=== PATIENT | female | born 1970 | race Caucasian/White ===

== ENCOUNTER 2019-01-21 22:52 | Inpatient (IN) | payer OTHER ==
[~2019-01-21] VITALS: Ht 160 cm; Wt 80.3 kg
[2019-01-21] MEDS ORDERED: ONDANSETRON HCL INJ 2MG/ML 2ML 2 MG/ML VIAL IV STA (23:00)
[2019-01-21] MEDS ORDERED: KETOROLAC TROMETHAMINE 30 MG/ML VIAL IV STA (23:00)
[2019-01-21 23:14] LABS: BASOPHILS % 0.3 % (0.0-1.0); EOSINOPHILS # (AUTO) 0.2 (0.0-0.4); EOSINOPHILS % 3.7 % (0.0-6.0); HEMATOCRIT 35.7 % (34.2-44.1); HEMOGLOBIN 12.1 g/dL (12.0-16.0); LYMPHOCYTES % 31.1 % (18.0-39.1); MEAN CORPUSCULAR HEMOGLOBIN 28.8 pg (28-32); MEAN CORPUSCULAR HGB CONC 33.9 g/dL (31-35); MONOCYTES # (AUTO) 0.5 (0.2-0.8); MONOCYTES % 7.5 % (4.4-11.3); NEUTROPHILS # (AUTO) 3.8 (2.1-6.9); NEUTROPHILS % 57.2 % (38.7-80.0); PLATELET COUNT 163 x10e3/uL (140-360); RED CELL DISTRIBUTION WIDTH 12.7 % (11.7-14.4)
[2019-01-21] MEDS: SODIUM CHLORIDE 0.9% 1000ML 1,000 ML IV SCH (23:18)
[2019-01-21 23:35] LABS: ANION GAP 15.8 mmol/L (8-16); BLOOD UREA NITROGEN 17 mg/dL (7-26); BUN/CREATININE RATIO 19 (6-25); CALCIUM 9.8 mg/dL (8.4-10.2); CARBON DIOXIDE 22 mmol/L (22-29); CHLORIDE 105 mmol/L (98-107); CREATININE, SERUM 0.91 mg/dL (0.57-1.11); EST GLOMERULAR FILTRATION RATE > 60 ML/MIN (60-); GLUCOSE 134 mg/dL (74-118); POTASSIUM 3.8 mmol/L (3.5-5.1); SODIUM 139 mmol/L (136-145)
[2019-01-21] MEDS ORDERED: MORPHINE SULFATE INJ 4 MG/ML INJ 1ML IV STA (23:55)
[2019-01-21 23:58] LABS: BILIRUBIN,URINE NEGATIVE (NEGATIVE); CLARITY,URINE CLEAR (CLEAR); COLOR,URINE YELLOW (YELLOW); KETONES,URINE NEGATIVE (NEGATIVE); LEUKOCYTE ESTERASE ,URINE NEGATIVE (NEGATIVE); NITRITE,URINE NEGATIVE (NEGATIVE); PROTEIN,URINE DIPSTICK NEGATIVE (NEGATIVE); URINE UROBILINOGEN 0.2 mg/dL (0.2 - 1)
[2019-01-22] VITALS (8 sets, daily range): BP systolic 125–167; BP diastolic 60–86
[2019-01-22 00:04] LABS: PREGNANCY TEST, URINE NEGATIVE (NEGATIVE)
[2019-01-22 00:14] LABS: EPITHELIAL CELLS,URINE FEW /LPF; RBC,URINE 0-5 /HPF (0-5); WBC,URINE (MAN) 0-5 /HPF (0-5)
--- NOTE | 2019-01-22 00:49 | Diagnostic Imaging Report ---
EXAM: CT Abdomen and Pelvis WITHOUT contrast INDICATION: ^Flank Pain ^20190121 ^2330 COMPARISON: None. TECHNIQUE: Abdomen and pelvis were scanned utilizing a multidetector helical scanner from the lung base to the pubic symphysis without administration of IV contrast. Absence of intravenous contrast decreases sensitivity for detection of focal lesions and vascular pathology. Coronal and sagittal reformations were obtained. Routine protocol was performed. IV CONTRAST: None ORAL CONTRAST: None. COMPLICATIONS: None RADIATION DOSE: Total DLP: 544.98 mGy*cm Estimated effective dose: (DLP x 0.015 x size factor) mSv CTDIvol has been reviewed. It is below the limits set by the Radiation Protocol Committee (RPC). FINDINGS: LINES and TUBES: None. LOWER THORAX: Scattered small groundglass opacities, likely subsegmental atelectasis. HEPATOBILIARY: Hepatic steatosis. 2.4 cm caudate lobe hypodensity is probably a cyst. No biliary ductal dilation. GALLBLADDER: Contracted. No radio-opaque stones or sludge. No wall thickening. SPLEEN: No splenomegaly. PANCREAS: No focal masses or ductal dilatation. ADRENALS: No adrenal nodules KIDNEYS/URETERS: Moderate right perinephric inflammation and mild to moderate right hydronephrosis, caused by proximal right ureteral calculi, measuring up to 8 mm. Multiple right renal calculi, the largest is a staghorn calculus in the inferior pole, measuring approximately 1.9 cm as well as a 1.6 cm calculus in right renal pelvis. Cluster of left renal inferior pole nonobstructive calculi, measuring up to 6 mm. No left hydronephrosis. Limited for evaluation of renal parenchyma without intravenous contrast. GI TRACT: No abnormal distention, wall thickening, or evidence of bowel obstruction. Appendix is normal. PELVIC ORGANS/BLADDER: Unremarkable. LYMPH NODES: No lymphadenopathy. VESSELS: Unremarkable. PERITONEUM / RETROPERITONEUM: No free air or fluid. BONES: Unremarkable. SOFT TISSUES: Unremarkable. IMPRESSION: 1. Moderate right perinephric inflammation and mild to moderate hydronephrosis, caused by obstructive proximal right ureteral calculi, measuring up to 8mm. Multiple additional right renal calculi as above. Superimposed infection cannot be excluded. 2. Multiple left renal subcentimeter nonobstructive calculi. 3. Hepatic steatosis. Signed by: Dr. Moncho Perez MD on 01/22/2019 12:46 AM
--- OUTSIDE RECORDS SUMMARY | 2019-01-22 01:19 | XMS REPORT ---
Author [facility] Address Unknown Phone Unavailable Care Team Providers Care Approver Name Role Phone MARIANNE GAN Unavailable Unavailable HAMPEL, ROBERT Unavailable Unavailable Payers Payer Name Policy Type Policy Number Effective Date Expiration Date Problems This patient has no known problems. Allergies, Adverse Reactions, Alerts This patient has no known allergies or adverse reactions. Medications This patient has no known medications. Results Test Description Test Time Test Comments Text Results Atomic Results Result Comments CT ABDOMEN/PELVIS WO 2019-01-22 00:31:00 [place] [address] Patient Name: SINAI REYES MR #: [id number] : 1970 Age/Sex: 48/F Req #: [id number] Adm Physician: Ordered by: MARIANNE GAN DO Report #: [id number] Location: ER Room/Bed: Procedure: [id number] CT/CT ABDOMEN/PELVIS WO Exam Date: 01/21/19 Exam Time: 2329 REPORT STATUS: Signed EXAM: CT Abdomen and Pelvis WITHOUT contrast INDIC ATION: Flank Pain 20190121 COMPARISON: None. TECHNIQUE: Abdomen and pelvis were scanned utilizing a multidetector helical scanner from the lung base to the pubic symphysis without administration of IV contrast. Absence of intravenous contrast decreases sensitivity for detection of focal lesions and vascular pathology. Coronal and sagittal reformations were obtained. Routine protocol was performed. IV CONTRAST: None ORAL CONTRAST: None. COMPLICATIONS: None RADIATION DOSE: Total DLP: 544.98 mGy*cm Estimated effective dose: (DLP x 0.015 x size factor) mSv CTDIvol has been reviewed. It is below the limits set by the Radiation Protocol Committee (RPC). FINDINGS: LINES and TUBES: None. LOWER THORAX: Scattered small groundglass opacities, likely subsegmental atelectasis. HEPATOBILIARY: Hepatic steatosis. 2.4 cm caudate lobe hypodensity is probably a cyst. No biliary ductal dilation. GALLBLADDER: Contracted. No radio-opaque stones or sludge. No wall thickening. SPLEEN: No splenomegaly. PANCREAS: No focal masses or ductal dilatation. ADRENALS: No adrenal nodules KIDNEYS/URETERS: Moderate right perinephric inflammation and mild to moderate right hydronephrosis, caused by proximal right ureteral calculi, measuring up to 8 mm. Multiple right renal calculi, the largest is a staghorn calculus in the inferior pole, measuring approximately 1.9 cm as well as a 1.6 cm calculus in right renal pelvis. Cluster of left renal inferior pole nonobstructive calculi, measuring up to 6 mm. No left hydronephrosis. Limited for evaluation of renal parenchyma without intravenous contrast. GI TRACT: No abnormal distention, wall thicke lyn, or evidence of bowel obstruction. Appendix is normal. PELVIC ORGANS/BLADDER: Unremarkable. LYMPH NODES: No lymphadenopathy. VESSELS: Unremarkable. PERITONEUM / RETROPERITONEUM: No free air or fluid. BONES: Unremarkable. SOFT TISSUES: Unremarkable. IMPRESSION: 1. Moderate right perinephric inflammation and mild to moderate hydronephrosis, caused by obstructive proximal right ureteral calculi, measuring up to 8mm. Multiple additional right renal calculi as above. Superimposed infection cannot be excluded. 2. Multiple left renal siu bcentimeter nonobstructive calculi. 3. Hepatic steatosis. Signed by: Dr. Moncho Salcedo MD on 01/22/2019 12:46 AM Dictated By: MONCHO SALCEDO MD Transcribed By: ARAVIND on 01/22/1945 COPY TO: MARIANNE GAN DO ABDOMEN-1VIEW (KUB) [place] [address] Patient Name: SINAI CONNOLLY MR #: [id number] : 1970 Age/Sex: 46/F Req #: [id number] Adm Physician: Ordered by: ROBERT MARSHALL MD Report #: [id number] Location: OR Room/Bed: Procedure: [id number] DX/ABDOMEN-1VIEW (KUB) Exam Date: 09/15/17 Exam Time: 1015 REPORT STATUS: Signed PROCEDURE: X-RAY ABDOMEN - KUB COMPARISON: 08/11/2017. INDICATIONS: PREOPERATIVE XRAY FOR KIDNEY STONE SURGERY FINDINGS: Interval placement of a left internal ureteral stent. The proximal locking loop projects over the expected region of the upper pole collecting system. The distal locking loop projects over the expected region of the left side of the bladder. No suspicious calcifications project over the renal shadows, left ureteral stent, expected right ureteral course, or urinary bladder. Bowel gas pattern is nonobstructive. Regional skeletal structures are intact. CONCLUSION: Interval placement of a left internal ureteral stent, positioned as described. Otherwise unchanged radiographic appearance of the abdomen relative to 08/11/2017. Dictated by: Maggie Alejandro M.D. on 09/15/2017 at 11:13 Electronically approved by: Maggie Alejandro M.D. on 09/15/2017 at 11:13 Dictated By: MAGGIE ALEJANDRO MD 1113 Transcribed By: TYRONE on 09/15/171112 COPY TO: ROBERT MARSHALL MD ABDOMEN-1VIEW (KUB) [place] [address] Patient Name: SINAI CONNOLLY MR #: [id number] : 1970 Age/Sex: 46/F Req #: [id number] Adm Physician: Ordered by: ROBERT MARSHALL MD Report #: [id number] Location: OR Room/Bed: Procedure: [id number] DX/ABDOMEN-1VIEW (KUB) Exam Date: Exam Time: REPORT STATUS: Signed PROCEDURE: X-RAY ABDOMEN - KUB COMPARISON: CT abdomen and pelvis 08/05/2017. CT abdomen and pelvis 03/18/2016 INDICATIONS: PREOPERATIVE XRAY FOR KIDNEY STONE REMOVAL FINDINGS: There is a non-obstructed bowel-gas pattern. There are no calcifications projected over the renal shadows, expected course of the ureters or bladder. Phleboliths are present in the pelvis. There are no acute osseous abnormalities. The lung bases are clear. CONCLUSION: No acute radiographic abnormality. Dictated by: Susanna Vallejo M.D. on 08/11/2017 at 10:09 Electronically approved by: Susanna Vallejo M.D. on 08/11/2017 at 10:09 Dictated By: SUSANNA VALLEJO MD 1009 Transcribed By: TYRONE on 08/11/17 1009 COPY TO: ROBERT MARSHALL MD CT ABDOMEN/PELVIS WO [place] [address] Patient Name: SINAI CONNOLLY MR #: [id number] : 1970 Age/Sex: 46/F Req #: [id number] [facility] Physician: Ordered by: ROBERT MARSHALL MD Report #: [id number] Location: CT Room/Bed: Procedure: [id number] CT/CT ABDOMEN/PELVIS WO Exam Date: 08/05/17 Exam Time: 1030 REPORT STATUS: Signed PROCEDURE: CT ABDOMEN AND PELVIS WITHOUT CONTRAST TECHNIQUE: The abdomen and pelvis were scanned utilizing a multidetector helical scanner from the diaphragm to the lesser trochanter without contrast. No IV contrast was administered because per physician request). Coronal and sagittal multiplanar reformations were obtained. COMPARISON: [facility], CT, CT ABDOMEN/PELVIS WO, 03/18/2016, 11:22. INDICATIONS: R/O STONES FINDINGS: ABSENCE OF INTRAVENOUS CONTRAST DECREASES SENSITIVITY FOR DETECTION OF FOCAL LESIONS AND VASCULAR PATHOLOGY. LOWER THORAX: Mild bibasilar patchy ground glass density suggestive of subsegmental atelectasis. The HEPATOBILIARY: Severe hepatic steatosis again observed. No biliary ductal dilatation. SPLEEN: No splenomegaly. PANCREAS: No focal masses or ductal dilatation. ADRENALS: No adrenal nodules. KIDNEYS/URETERS: No hydronephrosis. Bilateral low-attenuation lesions consistent with cysts, the largest in the anterior interpolar region of the right kidney measuring 2.0 cm on image 72 series 3. There are bilateral nonobstructing renal calculi, the largest in the posterior interpolar region of the right kidney measuring 1.05 cm in the lower pole anteriorly on coronal image 63. There is a 0.8 cm calculus within the left renal pelvis on image 60 series 3; this calculus was previously located in the upper pole of the left kidney. A 0.8 cm high attenuation lesion in the upper pole of the left kidney laterally on image 45 series 3 represent a hyperdense cyst, however, not fully characterized due to the lack of contrast. A similar lesion measuring 0.8 cm is present no pole of the left kidney on images 76 series 3. PELVIC ORGANS/BLADDER: Status post hysterectomy. PERITONEUM / RETROPERITONEUM: No free air or fluid. LYMPH NODES: No lymphadenopathy. VESSELS: Unremarkable. GI TRACT: No distention or wall thickening. Hypodense foci within the otherwise normal appendix consistent with appendicoliths. BONES AND SOFT TISSUES: Small fat-containing left inguinal hernia. No acute osseous abnormality. IMPRESSION: 1. Bilateral nonobstructing nephrolithiasis as detailed above. No hydronephrosis. 2. Severe hepatic steatosis. Parmjit Beasley M.D. Dictated by: Parmjit Beasley M.D. on 08/05/2017 at 12:53 Electronically approved by: Parmjit Beasley M.D. on 08/05/2017 at 12:53 Dictated By: RAUL BEASLEY MD, MD 1253 Transcribed By: TYRONE on 08/05/17 1253 COPY TO: ROBERT MARSHALL MD
[2019-01-22] MEDS: HYDROMORPHONE 2MG/ML 2 MG/ML ML IV PRN ×4 (02:29→20:52)
[2019-01-22] MEDS: SODIUM CHLORIDE 0.9% 1000ML 1,000 ML IV SCH ×4 (02:29→21:30)
[2019-01-22] MEDS: ONDANSETRON HCL INJ 2MG/ML 2ML 2 MG/ML VIAL IV PRN ×3 (04:52→15:31)
[2019-01-22] MEDS: MORPHINE SULFATE INJ 4 MG/ML INJ 1ML IV PRN ×2 (04:52→10:52)
[2019-01-22] MEDS ORDERED: BELLADONNA/OPIUM 60 MG SUPP PR ONE (12:15)
[2019-01-22] MEDS ORDERED: IOPAMIDOL 610MG/1ML 300 MG/ML VIAL IV ONE (12:15)
[2019-01-22] MEDS ORDERED: ACETAMINOPHEN 1000 MG/100 ML 100 ML IV ONE (12:41)
[2019-01-22] MEDS: CEFTRIAXONE SOD 1 GM/NS 50 ML 50 ML IV SCH (12:45)
--- NOTE | 2019-01-22 13:36 | History and Physical ---
CHIEF COMPLAINT: Right flank/right abdominal pain. HISTORY OF PRESENT ILLNESS: This is a 48-year-old white woman, who presents to [facility] with sudden onset of intense right flank, right lumbar abdominal pain. The patient states this presentation was similar to the previous presentations of obstructive kidney stones. In the emergency room, the patient underwent a CT of the abdomen and pelvis that revealed an obstructing 8 mm stone in the right ureter as well as right perinephric stranding and mild right-sided hydronephrosis. CT of the abdomen and pelvis also revealed evidence of fatty liver disease. The patient's complete blood count and basic metabolic profile were all within normal limits. The patient was admitted for further evaluation and treatment. REVIEW OF SYSTEMS: GENERAL: Weight is stable. No fever or chills. HEENT: No headaches. No vision changes. CARDIOVASCULAR: No chest pain. Patient states her blood pressure has been elevated. GI: No nausea, vomiting, or constipation. : No dysuria, hematuria, incontinence, but complains of intense right flank pain that radiates to the right lumbar abdominal area. NEUROMUSCULAR: Denies any limb weakness, but does complain of right flank pain. PAST MEDICAL HISTORY: 1. Recurrent obstructive nephrolithiasis. 2. Fatty liver disease. 3. Polycystic kidney/liver disease. 4. Prediabetes. 5. Migraine headaches. 6. Hypertensive heart disease. 7. Mild obesity. PAST SURGICAL HISTORY: 1. Multiple ureteral stent placements and removal (Last episode was in August 2017). 2. Left heart catheterization. 3. Total abdominal hysterectomy. 4. Left foot surgery. 5. Right kidney cyst drainage. 6. Multiple cystoscopies with subsequent stent placement and stone extractions. FAMILY HISTORY: Polycystic kidney and liver disease. ALLERGIES: NO KNOWN DRUG ALLERGIES. SOCIAL HISTORY: Recently remarried. She has three healthy children. The patient denies any history of tobacco use, but does drink alcohol socially. MEDICATIONS: None. PHYSICAL EXAMINATION: GENERAL: She is awake, alert, and fluent in no distress, very pleasant. Her is at bedside. VITAL SIGNS: Height is 5 feet 3 inches, weight 177 pounds, BMI 31, blood pressure 140/70, pulse 78, respirations 18, temperature 97.1. INTEGUMENT: Skin is warm and dry. No pallor, jaundice or diaphoresis. HEENT: Anterior sclerae with moist mucous membranes. NECK: Supple. CARDIOVASCULAR: Regular rate and rhythm with an S4 gallop. LUNGS: No rales. No rhonchi or wheezes. ABDOMEN: Soft. She does have tenderness when palpating the right lumbar abdominal area. No hepatomegaly is appreciated. SPINE/TORSO: The patient does have right costovertebral angle tenderness with palpation. ASSESSMENT: 1. Right obstructing 8 mm ureteral stone resulting in mild hydronephrosis. 2. Right perinephric inflammation from obstructing stone and possible pyelonephritis. 3. Hypertensive heart disease. 4. Mild obesity. BMI 31. 5. Fatty liver disease. 6. History of recurrent obstructive nephrolithiasis. 7. Polycystic liver/kidney disease. PLAN: 1. Continue intravenous fluids. 2. Antiemetics. 3. Pain control. 4. Consult Urology. 5. Blood pressure monitoring. 6. Limit alcohol consumption to no more than two drinks in 24 hour time span. I spent 35 minutes in the care of this patient. MD VIRIDIANA Chacon/BRENNON /[id number] MTDD
[2019-01-22] MEDS ORDERED: ACETAMINOPHEN/CODEINE 300MG - 30MG TAB PO PRN (14:15)
[2019-01-22] MEDS: BELLADONNA/OPIUM 30 MG SUPP RC PRN ×2 (16:01→22:06)
[2019-01-22] MEDS: OXYBUTYNIN CHLORIDE 5 MG TAB PO SCH ×2 (16:01→20:52)
--- NOTE | 2019-01-22 17:13 | Consultation ---
DATE OF CONSULTATION: 01/22/2019 Urology Consultation REASON FOR CONSULTATION: Renal colic. HISTORY OF PRESENT ILLNESS: Madison Huitron is a 48-year-old woman with polycystic kidney disease. The patient has had recurrent urolithiasis. She has not followed up in some time. She had severe right-sided flank pain, has reported to the emergency room, obstructive uropathy was diagnosed, and the patient was subsequently admitted. PAST MEDICAL AND SURGICAL HISTORY: Please refer to the previous charts here in the hospital as well as in my office. FAMILY HISTORY: Noncontributory to active urological problems. SOCIAL HISTORY: The patient denies current smoking, alcohol, or drug use. 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 CURRENT MEDICATIONS: Reviewed, refer the MAR. ALLERGIES: NONE KNOWN. REVIEW OF SYSTEMS: Discussed as above in history of present illness and past medical history, otherwise negative for all other systems. PHYSICAL EXAMINATION: GENERAL: Healthy-appearing 48-year-old woman, sitting up in bed, in no apparent distress. VITAL SIGNS: She is currently afebrile. Vital signs are currently stable. ABDOMEN: Soft, nondistended, nontender except for some right-sided costovertebral angle tenderness. Kidneys are not palpable, without hepatosplenomegaly. No obvious evidence of hernia. The patient is obese. For the remaining physical examination systems, please refer to the admission history and physical in the chart. LABORATORY STUDIES: White blood cell count is 6560, hemoglobin 12.1, platelets are 163,000. The patient's creatinine is normal at 0.91. Urinalysis significant for 0-5 rbc's, 0-[address] scan of the abdomen and pelvis was done as a stone protocol. It revealed liver cyst, moderate right-sided perinephric inflammation with right-sided hydronephrosis due to proximal right ureteral calculi up to 8 mm in size. There are multiple right renal stones, the largest is staghorn in inferior pole measuring 1.9 cm as well as a 1.6 cm calculus in the right renal pelvis. There is cluster of stones in the left lower kidney as well. Renal cysts were noted. ASSESSMENT: 1. Right renal colic. 2. Polycystic kidney disease. 3. Bilateral nephrolithiasis. 4. Right ureterolithiasis. 5. Right-sided hydronephrosis due to stone. 6. Obesity. PLAN: The patient is symptomatic, therefore I posted her to the operating room for cystoscopy with retrograde pyelograms, insertion of stent, possible ureteroscopy with laser lithotripsy. The patient understands the risks, benefits, and alternatives of the surgery. She understands she will have a temporary indwelling ureteral stent that requires followup and removal. Thank you very much for involving us in the care of your patient. We will be happy to follow along with you as well as an outpatient. Prosper MD Oziel OH/MODL /[id number] cc: Itz Amador MD
[2019-01-22] MEDS: PHENAZOPYRIDINE HCL 100 MG TAB PO SCH (17:47)
[2019-01-22] MEDS ORDERED: DEXAMETHASONE SOD PHOS INJ 4 MG/ML VIAL ONE (17:53)
[2019-01-22] MEDS ORDERED: ONDANSETRON HCL INJ 2MG/ML 2ML 2 MG/ML VIAL ONE (17:53)
[2019-01-22] MEDS ORDERED: DESFLURANE 240 ML BTL INH ONE (17:53)
[2019-01-22] MEDS ORDERED: PROPOFOL IV EMULSION 10 MG/ML 20 ML VIAL ONE (17:53)
[2019-01-22] MEDS ORDERED: EPHEDRINE SULFATE INJ 50 MG/10 ML SYR ONE (17:53)
[2019-01-22] MEDS ORDERED: LIDOCAINE HCL 2% LOCAL INJ 5 ML SDV VIAL INJ ONE (17:53)
[2019-01-22] MEDS ORDERED: FENTANYL CITRATE/PF 100MCG/2 ML INJ ONE (18:37)
[2019-01-22] MEDS ORDERED: MIDAZOLAM HCL 2 MG/2 ML VIAL ONE (18:37)
--- NOTE | 2019-01-22 20:18 | Operative Report ---
DATE OF PROCEDURE: 01/22/2019 SURGEON: Prosper Ludwig MD PROCEDURES PERFORMED: 1. Cystourethroscopy with bilateral ureteral catheterization and retrograde ureteropyelography (separate procedure performed to evaluate the location and anatomy of the bilateral nephrolithiasis). 2. Right ureteroscopy with holmium laser lithotripsy and insertion of stent (separate procedure performed to address the obstructing right ureterolithiasis). 3. Radiological services with supervision and interpretation of ureteroscopy. 4. Interpretation of retrograde ureteropyelography. 5. Supervision of fluoroscopy, no radiologist present. 6. Pelvic examination under anesthesia. ANESTHESIA: General. COMPLICATIONS: None. CLINICAL SUMMARY: Please refer to consultation dictation of the same date. OPERATIVE PROCEDURE IN DETAIL: Informed consent was verified. Madison Huitron was properly identified, taken to the operating room, placed on the cystoscopy table in supine position. Anesthesia was uneventfully begun. The patient was then carefully gently repositioned in dorsal lithotomy position. All pressure points were well padded. Her genitalia were prepared and draped in usual sterile fashion. The cystoscope sheath with obturator in place was atraumatically inserted into the patient's urethra and bladder was drained. Panendoscopy revealed no suspicious mucosal lesions, no tumors, no stones, no diverticula, normally positioned and configured ureteral orifices were identified. An open-ended ureteral catheter was used to cannulate the left ureter and retrograde ureteropyelogram was performed. It was inserted into the right ureter and retrograde ureteropyelography was performed. INTERPRETATION OF RETROGRADE URETEROPYELOGRAPHY: Contrast was instilled in a retrograde fashion bilaterally. The left side exhibited no hydronephrosis. There were some filling defects noted in the lower pole, which are consistent with the stones noted on CT. The right side exhibited hydroureteronephrosis down to the proximal ureter, where there was a filling defect consistent with the obstructing stone and multiple filling defects were identified within the patient's kidney. Following placement of a guidewire atraumatically into the right ureter and past the stone, a secondary guidewire was utilized. The flexible ureteroscope was then brought up to the proximal ureter. We identified the large stone. This stone underwent holmium laser lithotripsy. The stone was soft and created much sand. We whittled the stone down to smaller pieces. With cystoscope and fluoroscopic guidance, the right-sided indwelling ureteral stent was then placed. It was coiled in the patient's several calyx as well as in the patient's bladder. The retaining suture was cut short. The patient's bladder was drained. The cystoscope was withdrawn. Pelvic examination revealed a grade 2 cystocele with urethral hypermobility and mild rectocele that is grade 1 in nature. No abnormal palpable pelvic masses could be appreciated. There were no obvious mucosal lesions. The patient was then uneventfully reversed from anesthesia and taken to recovery room in stable condition. We will monitor the patient overnight, determine that she has adequate pain control. We will then plan to discharge the patient home tomorrow. Following this, the patient will be brought back as an outpatient for her next ureteroscopy with laser lithotripsy. Prosper Ludwig MD OH/MODL /[id number] cc: Itz Amador MD
[2019-01-23] MEDS: HYDROMORPHONE 2MG/ML 2 MG/ML ML IV PRN ×4 (00:02→09:15)
[2019-01-23] MEDS: CEFTRIAXONE SOD 1 GM/NS 50 ML 50 ML IV SCH (00:02)
[2019-01-23 00:15] VITALS: BP 125/66
[2019-01-23] MEDS: SODIUM CHLORIDE 0.9% 1000ML 1,000 ML IV SCH (05:00)
[2019-01-23 05:01] VITALS: BP 112/53
[2019-01-23 05:59] LABS: BASOPHILS % 0.1 % (0.0-1.0); EOSINOPHILS % 0.1 % (0.0-6.0); HEMATOCRIT 31.8 % (34.2-44.1); HEMOGLOBIN 10.7 g/dL (12.0-16.0); MEAN CORPUSCULAR HGB CONC 33.6 g/dL (31-35); MEAN CORPUSCULAR VOLUME 86.2 fL (81-99); MONOCYTES # (AUTO) 0.3 (0.2-0.8); MONOCYTES % 3.5 % (4.4-11.3); NEUTROPHILS % 84.8 % (38.7-80.0); PLATELET COUNT 152 x10e3/uL (140-360); RED BLOOD COUNT 3.69 x10e6/uL (3.6-5.1); RED CELL DISTRIBUTION WIDTH 12.9 % (11.7-14.4)
[2019-01-23 06:25] LABS: ALANINE AMINOTRANSFERASE 69 IU/L (0-55); ALBUMIN 3.3 g/dL (3.5-5.0); ALBUMIN/GLOBULIN RATIO 1.1 (0.8-2.0); ALKALINE PHOSPHATASE 75 IU/L (40-150); BLOOD UREA NITROGEN 12 mg/dL (7-26); BUN/CREATININE RATIO 14 (6-25); CARBON DIOXIDE 19 mmol/L (22-29); CHLORIDE 110 mmol/L (98-107); CREATININE, SERUM 0.84 mg/dL (0.57-1.11); EST GLOMERULAR FILTRATION RATE > 60 ML/MIN (60-); GLUCOSE 139 mg/dL (74-118); SODIUM 139 mmol/L (136-145)
[2019-01-23 07:44] LABS: CALCIUM 8.4 mg/dL (8.4-10.2)
[2019-01-23 07:51] VITALS: BP 125/59
[2019-01-23] MEDS: OXYBUTYNIN CHLORIDE 5 MG TAB PO SCH (08:06)
[2019-01-23] MEDS: PHENAZOPYRIDINE HCL 100 MG TAB PO SCH (08:06)
[2019-01-23 09:04] VITALS: BP 125/59
[2019-01-23] MEDS ORDERED: NORCO 10-325 T1 EACH PO (10:01)
[2019-01-23] MEDS ORDERED: CIPRO500 MG PO (10:01)
[2019-01-23] MEDS ORDERED: PROMETHAZINE HC25 M1 PO (10:01)
[2019-01-23] MEDS ORDERED: ONDANSETRON HCL 4 MG ORAL DISINTEGRATING TAB PO PRN (10:15)
--- NOTE | 2019-01-23 10:40 | Discharge Summary ---
ADMITTING DIAGNOSES: 1. Right renal colic, secondary to right obstructing ureteral stone. 2. Right obstructing 8 mm ureteral stone resulting in mild hydronephrosis. 3. Right perinephric inflammation from obstructing stone and possible pyelonephritis. 4. Hypertensive heart disease. 5. Mild obesity, BMI 31. 6. Fatty liver disease. 7. History of recurrent obstructive nephrolithiasis. 8. Polycystic liver/kidney disease. DISCHARGE DIAGNOSES: 1. Status post cystourethroscopy with bilateral ureteral catheterization and right ureteral stent placement. 2. Status post right ureteroscopy with laser lithotripsy. 3. Right-sided pyelonephritis, resolving. 4. Fatty liver disease. 5. Polycystic kidney/liver disease. 6. Mild obesity, BMI 31. HOSPITAL COURSE: This is a 48-year-old white woman, who has known history of recurrent obstructive nephrolithiasis. She was admitted to [facility] with diagnosis of severe right renal colic secondary to an obstructive right ureteral [address] of the abdomen and pelvis also revealed [id number] hydronephrosis of the right kidney as well as right perinephric stranding, possibly consistent with pyelonephritis. The patient was seen by urologist during this hospitalization by Dr. Prosper Ludwig, who performed a cystourethroscopy with bilateral ureteral catheterization and retrograde ureteropyelography. He also performed right ureteroscopy with laser lithotripsy and insertion of right ureteral stent. The patient tolerated the procedure well. The patient was started on intravenous ceftriaxone during this hospitalization for her possible right-sided pyelonephritis. The patient presented with hypertension, but it did improve after her pain was controlled and after the urologic procedure. Her hospitalization was unremarkable. On the day of discharge, the patient's white blood cell count was 9400 with 84% segmented neutrophils. Hemoglobin was 10.7 g/dL. DISCHARGE MEDICATIONS: 1. Tylenol No. 3, one pill every 4 hours as needed for mild pain, 35 prescribed. 2. [place] 10/325, one pill twice a day as needed for severe pain, 12 prescribed, no refills. 3. Ditropan 5 mg t.i.d. p.r.n. bladder spasms. 4. Ciprofloxacin 250 mg twice a day for 14 days. 5. Phenergan 25 mg b.i.d. p.r.n. nausea, vomiting, 12 prescribed, 1 refill. FOLLOWUP INSTRUCTIONS: The patient instructed to follow up with Dr. Ludwig in [address] Amador, her primary care physician in 2 weeks. Itz E MD VIRIDIANA Amador/BRENNON /[id number] cc: Prosper Ludwig MD
== END 2019-01-23 11:15 | disposition home or self-care (01) | DRG 660 ==
LOC: ER 22:52 → ERHOLD 01-22 01:17 → MED/SURG 01-22 02:03
PROVIDERS: ADMIT Internal Medicine; ATTEND Internal Medicine
PROC: 0T768DZ Dilation of Right Ureter with Intraluminal Device, Via Natural or Artificial Opening Endoscopic (ICD-10-PCS; 2019-01-22)
PROC: 0TF68ZZ Fragmentation in Right Ureter, Via Natural or Artificial Opening Endoscopic (ICD-10-PCS; 2019-01-22)
PROC: BT141ZZ Fluoroscopy of Kidneys, Ureters and Bladder using Low Osmolar Contrast (ICD-10-PCS; 2019-01-22)
PROC: 0T778ZZ Dilation of Left Ureter, Via Natural or Artificial Opening Endoscopic (ICD-10-PCS; principal; 2019-01-22 13:06)
DX: N13.6 Pyonephrosis (principal); Q61.3 Polycystic kidney, unspecified; Q44.6 Cystic disease of liver; N20.1 Calculus of ureter; I11.9 Hypertensive heart disease without heart failure; E66.9 Obesity, unspecified; Z68.31 Body mass index [BMI] 31.0-31.9, adult; K76.0 Fatty (change of) liver, not elsewhere classified
CPT/HCPCS: 36415; 74176; 74420; 80048; 80053; 81001; 81025; 85025; 99284; C1758; C1874; J0696; J1100; J1885; J2001; J2250; J2270; J2405; J7030